=== PATIENT | male | born 1985 | race Caucasian/White ===

== ENCOUNTER 2018-10-05 18:24 | Emergency (ER) | payer MEDICAID ==
[~2018-10-05] VITALS: Ht 180.3 cm; Wt 62.8 kg
[2018-10-05 18:27] VITALS: BP 149/75; PULSE 102; RESP 20; Ht 180.3 cm; Wt 62.8 kg
--- NOTE | 2018-10-05 22:25 | ERD ---
ER Documentation Chief Complaint Chief Complaint Pt reports bump on sacral area that is getting bigger and painful HPI This is a 32-year-old male who presents emergency department with complaints of abscess/bump to his sacral area that is getting bigger. Denies headache, head injury, loss of consciousness, dizziness, neck pain, neck stiffness, throat pain, difficulty swallowing, difficulty breathing lying flat, shoulder pain, chest pain, back pain, abdominal pain, nausea, vomiting, constipation, diarrhea, urinary symptoms, loss of bowel and bladder control, trauma, injury, falls, difficulty walking due to pain, numbness or tingling sensation, calf pain, recent travel, recent major surgery in the last 3 weeks, calf pain, recent long travel, recent exposure to any illness, recent antibiotic use in the last 3 months, fever, chills, seizures. Social: Denies smoking, use of alcoholic beverages, use of illegal drugs. ROS All systems reviewed and are negative except as per history of present illness. Medications Home Meds Active Scripts Acetaminophen* (Tylophen*) 500 Mg Capsule, 1 CAP PO Q6H PRN for PAIN AND OR ELEVATED TEMP, #20 CAP Prov:PASILABAN,KLAR F 10/05/18 Cephalexin* (Keflex*) 500 Mg Capsule, 500 MG PO QID for 5 Days, CAP Prov:PASILABAN,KLAR F 10/05/18 Discontinued Scripts Sulfamethoxazole/Trimethoprim* (Bactrim Ds* Tablet) 1 Each Tablet, 1 TAB PO BID, #14 TAB Prov:PASILABAN,KLAR F 10/05/18 Allergies Allergies: Coded Allergies: No Known Allergy (Unverified , 10/05/18) PMhx/Soc History of Surgery: Yes (AV Fistula Placement) Anesthesia Reaction: No Hx Neurological Disorder: No Hx Respiratory Disorders: No Hx Cardiac Disorders: No Hx Psychiatric Problems: No Hx Miscellaneous Medical Probl: Yes (CKD,Calcemia) Hx Alcohol Use: Yes (Social) Hx Substance Use: No Hx Tobacco Use: No Smoking Status: Never smoker Physical Exam Vitals Vital Signs Date Temp Pulse Resp B/P (MAP) Pulse Ox O2 O2 Flow FiO2 Time Delivery Rate 10/05/18 98.3 102 20 149/75 99 18:27 (99) Physical Exam Const: No acute distress Head: Atraumatic Eyes: Normal Conjunctiva ENT: Normal External Ears, Nose and Mouth. Neck: Full range of motion. No meningismus. Resp: Clear to auscultation bilaterally Cardio: Regular rate and rhythm, no murmurs Abd: Soft, non tender, non distended. Normal bowel sounds Skin: No petechiae or rashes Back: No midline or flank tenderness. Pilonidal cyst measuring approximately 2 x 2 cm in diameter noted to tailbone. Rectal area: No tenderness. No signs of perianal/perirectal abscess. Ext: No cyanosis, or edema Neur: Awake and alert. No neurological deficit. Psych: Normal Mood and Affect Results 24 hrs Current Medications Medications Dose Sig/Lito Start Time Status Last (Trade) Ordered Route PRN Stop Time Admin Dose Reason Admin Lidocaine/ 50 ml ONCE ONCE 10/05/18 Cancel Epinephrine INJ 22:30 (Xylocaine 10/05/18 22:31 1%/ Epi (Mdv)) 1 tab ONCE ONCE 10/05/18 DC 10/05/18 Acetaminophen PO 22:30 22:31 / 10/05/18 22:31 Hydrocodone Bitart (Williams (10/325)) Lidocaine/ 50 ml ONCE ONCE 10/05/18 DC Epinephrine INJ 23:00 (Xylocaine 10/05/18 23:01 1%/ Epi (Pf)) Procedures/MDM Diagnostic tests: Procedure: Incision and drainage of pilonidal cyst. Verbal consent was taken from the patient. Betadine prep. Lidocaine with epi 2 cc subcu. Scalpel used to incise area. D rained mucopurulent discharge. Sterile technique observed. Treatment: Williams p.o. Dressing applied by EMT. Re-evaluation: No active bleeding. No saddle anesthesia. No neurovascular deficits. Ambulatory with steady gait. Differential diagnosis I have low suspicion for deep space infection, prerectal abscess, sepsis, hemorrhage. Final diagnosis: Incision and drainage of pilonidal cyst. Prescription: Keflex. Follow-up with PCP in the next 24-48 hours. Come back here in the emergency department for any new symptoms or any worsening symptoms. All questions and concerns were answered. Patient and family members verbalized understanding and agreed with plan of care. Hemodynamically stable on discharge. Departure Diagnosis: Primary Impression: Abscess Condition: Stable Additional Instructions: Follow-up with PCP in the next 24-48 hours. Come back here in the emergency department for any new symptoms or any worsening symptoms. LORI GREY 16, 2019 22:25
[2018-10-05] MEDS ORDERED: LIDOCAINE 1%/EPI (MDV) 50 ML INJ INJ ONE (22:30)
[2018-10-05] MEDS ORDERED: HYDROCODONE/APAP (10/325) TAB PO ONE (22:30)
[2018-10-05] MEDS ORDERED: LIDOCAINE 1%/EPI 30 ML INJ INJ ONE (23:00)
[2018-10-05] MEDS ORDERED: SULF1TAB31 PO (23:26)
[2018-10-05] MEDS ORDERED: CEPH-443 PO (23:26)
[2018-10-05] MEDS ORDERED: ACET500C5 PO (23:27)
== END 2018-10-05 23:35 | disposition home or self-care (01) ==
LOC: FTE 18:24
DX: L05.01 Pilonidal cyst with abscess (principal); N18.9 Chronic kidney disease, unspecified
CPT/HCPCS: 10080; Z7502; Z7610